=== PATIENT | male | born 1950 | race Caucasian/White ===

== ENCOUNTER → 2019-11-15 | Outpatient (CLI) | payer OTHER ==
--- NOTE | 2019-11-15 11:17 | REP ---
Clinical: Left elbow pain . Technique: AP, lateral, bilateral oblique views of the left elbow. Findings: No acute fracture or dislocation is appreciated. Joint spaces and surrounding soft tissues appear normal. Lateral view demonstrates normal positioning to the anterior and posterior fat pads without evidence for effusion/hemarthrosis. No subcutaneous emphysema or foreign body identified. Impression: Normal age-appropriate left elbow radiographs. Electronically Signed by Malcolm Reynolds MD 11/15/2019 11:09 A
== END ==
LOC: M WUC 10:58
PROVIDERS: ATTEND Physician Assistant
DX: M25.522 Pain in left elbow (principal)

== ENCOUNTER → 2019-11-19 | Outpatient (CLI) | payer OTHER ==
[2019-11-19 11:23] LABS: BASO # 0.1 10^3/uL (0.0-0.2); BASO % 0.7 % (0.0-1.0); EOS # 0.1 10^3/uL (0.0-0.5); EOS % 1.4 % (0.0-3.0); HEMATOCRIT 44.2 % (42.0-52.0); HEMOGLOBIN 14.1 g/dl (13.5-17.5); LYMPH % 13.7 % (24.0-44.0); MEAN CORPUSCULAR HEMOGLOBIN 29.4 pg (27.0-33.0); MEAN CORPUSCULAR HGB CONC 31.9 g/dl (32.0-36.5); MEAN CORPUSCULAR VOLUME 92.3 fl (80.0-96.0); MONO # 0.5 10^3/uL (0.0-0.8); MONO % 6.6 % (0.0-5.0); NEUTROPHILS # 5.4 10^3/uL (1.5-8.5); NEUTROPHILS % 77.5 % (36.0-66.0); PLATELET COUNT, AUTOMATED 370 10^3/uL (150-450); RED BLOOD COUNT 4.79 10^6/uL (4.30-6.10); WHITE BLOOD COUNT 6.9 10^3/uL (4.0-10.0)
[2019-11-19 11:53] LABS: ALBUMIN 2.7 GM/DL (3.2-5.2); ALT/SGPT 34 U/L (12-78); BILIRUBIN,TOTAL 0.5 MG/DL (0.2-1.0); BLOOD UREA NITROGEN 13 MG/DL (7-18); CALCIUM LEVEL 8.7 MG/DL (8.8-10.2); CARBON DIOXIDE LEVEL 29 MEQ/L (21-32); CHLORIDE LEVEL 100 MEQ/L (98-107); CREATININE FOR GFR 0.89 MG/DL (0.70-1.30); GLOMERULAR FILTRATION RATE > 60.0 (>42); GLUCOSE, FASTING 285 MG/DL (70-100); POTASSIUM SERUM 4.4 MEQ/L (3.5-5.1); SODIUM LEVEL 136 MEQ/L (136-145); TOTAL PROTEIN 7.8 GM/DL (6.4-8.2)
--- NOTE | 2019-11-19 11:55 | REP ---
Clinical: Left elbow pain and swelling. Technique: Real time dutta scale and color evaluation using linear high frequency transducer. Findings: Directed ultrasound examination at the region of pain in the antecubital fossa demonstrates a complex fluid collection measuring 4.5 x 2.2 x 3.0 cm with surrounding edema. Findings suggest cellulitis and phlegmon/abscess formation. Impression: Significant subcutaneous edema and central complex collection suggesting cellulitis and phlegmon/abscess. Electronically Signed by Malcolm Reynolds MD 11/19/2019 11:46 A
== END ==
LOC: M RAD 10:36
PROVIDERS: ATTEND Physician Assistant
DX: M25.522 Pain in left elbow (principal)

== ENCOUNTER → 2019-11-22 | Outpatient (CLI) | payer OTHER ==
[2019-11-22 12:32] LABS: BASO % 0.6 % (0.0-1.0); EOS # 0.1 10^3/uL (0.0-0.5); EOS % 1.3 % (0.0-3.0); HEMATOCRIT 42.9 % (42.0-52.0); HEMOGLOBIN 14.1 g/dl (13.5-17.5); LYMPH # 1.3 10^3/uL (1.5-5.0); MEAN CORPUSCULAR HEMOGLOBIN 30.1 pg (27.0-33.0); MEAN CORPUSCULAR HGB CONC 32.9 g/dl (32.0-36.5); MEAN CORPUSCULAR VOLUME 91.7 fl (80.0-96.0); MONO # 0.4 10^3/uL (0.0-0.8); MONO % 6.6 % (0.0-5.0); NEUTROPHILS # 4.4 10^3/uL (1.5-8.5); NEUTROPHILS % 70.2 % (36.0-66.0); PLATELET COUNT, AUTOMATED 371 10^3/uL (150-450); RED BLOOD COUNT 4.68 10^6/uL (4.30-6.10); WHITE BLOOD COUNT 6.3 10^3/uL (4.0-10.0)
[2019-11-22 13:08] LABS: ERYTHROCYTE SEDIMENTATION RATE 68 mm/hr (0-20)
== END ==
LOC: M LAB 11:57
PROVIDERS: ATTEND Orthopaedic Surgery
DX: M00.9 Pyogenic arthritis, unspecified (principal)

== ENCOUNTER → 2020-01-07 | Outpatient (CLI) | payer OTHER ==
--- NOTE | 2020-01-07 14:56 | REP ---
Clinical: Symptoms related to atherosclerotic disease and intermittent claudication. Technique: Real time hart scale and color Doppler evaluation of the bilateral lower extremity arterial vasculature using linear high frequency transducer. Findings: Hart scale and color images demonstrate mild to moderate amounts of atheromatous plaquing with areas of minimal narrowing but no focal stenosis identified. Doppler interrogation demonstrates primarily biphasic arterial wave patterns. Peak systolic velocities (cm/sec) RIGHT LEFT SAMI 0.98 1.08 Common femoral artery 97.2 (triphasic) 72.9 Profunda femoris 98.8 65.9 SFA (proximal) 74.6 (triphasic) 90.4 SFA (mid) 76.4 91.1 SFA (distal) 60.3 93.9 Popliteal artery 42.1 45.1 BEN (prox.) 79.2 72.8 Tibioperoneal trunk 94.6 48.7 SHUTTLE SPOTTER (prox.) 70.1 95.7 SHUTTLE SPOTTER (distal) 48.5 68.7 BEN (distal) 59.5 23.9 Impression: Atheromatous changes with areas of narrowing but no obvious focal occlusion or stenosis. Electronically Signed by Malcolm Reynolds MD 01/07/2020 02:47 P
== END ==
LOC: M RAD 12:10
PROVIDERS: ATTEND Podiatrist Foot & Ankle Surgery
DX: I70.203 Unspecified atherosclerosis of native arteries of extremities, bilateral legs (principal)

== ENCOUNTER 2025-09-05 06:29 | Day surgery (SDC) | payer MEDICARE, OTHER ==
[~2025-09-05] VITALS: Ht 177.8 cm; Wt 78.2 kg
[~2025-09-05 06:29] MED LIST: ALBU2.5V10 INH; ASPI81CH48 PO; ATOR1TAB19 PO; FREE1KIT5 SC; JARD1TAB PO; LISI2.5T9 PO; METF500T13 PO; MULT400T10 PO; VITA400T PO
[2025-09-05] MEDS ORDERED: LR 1,000 ML IV SCH (07:00)
[2025-09-05] MEDS ORDERED: MIDAZOLAM INJ 2 MG/2 ML VIAL As Ordered ONE (07:07)
[2025-09-05] MEDS: TETRACAINE 0.5% OPHTH SOLN 4ML OD SCH (07:33)
[2025-09-05] MEDS: PHENYLEPHRINE 2.5% OPHTH SOL 2ML OD SCH (07:33)
[2025-09-05] MEDS: FLURBIPROFEN 0.03% OPHTH SOLN 2.5 ML OD SCH (07:33)
[2025-09-05] MEDS: CYCLOPENTOLATE 1% OPHTH SOLN 2 ML BTL OD SCH (07:33)
[2025-09-05] MEDS: INSULIN LISPRO (NovoLOG) PER UNIT SC PRN (07:35)
[2025-09-05] MEDS: LIDOCAINE 1% SDV 5 ML VIAL As Ordered ONE (08:17)
[2025-09-05] MEDS: CEFUROXIME 1 MG/0.1 ML INTRACAMERAL INJ As Ordered ONE (08:19)
[2025-09-05 08:35] VITALS: BP 161/74; TEMP 97.3; O2SAT 100
== END 2025-09-05 08:47 | disposition home or self-care (01) ==
LOC: M SDC 06:29
PROVIDERS: ATTEND Ophthalmology
DX: E11.36 Type 2 diabetes mellitus with diabetic cataract (principal); H25.11 Age-related nuclear cataract, right eye; I10 Essential (primary) hypertension; E78.00 Pure hypercholesterolemia, unspecified; J45.909 Unspecified asthma, uncomplicated; Z79.899 Other long term (current) drug therapy; Z79.82 Long term (current) use of aspirin
CPT/HCPCS: 66984; J0697; J1815; J2250; J3010; V2632

== ENCOUNTER 2025-11-07 06:45 | Day surgery (SDC) | payer MEDICARE, OTHER ==
[~2025-11-07] VITALS: Ht 177.8 cm; Wt 79.4 kg
[2025-11-07] MEDS ORDERED: LR 1,000 ML IV SCH (07:00)
[2025-11-07] MEDS: CYCLOPENTOLATE 1% OPHTH SOLN 2 ML BTL OS SCH (07:03)
[2025-11-07] MEDS: TETRACAINE 0.5% OPHTH SOLN 4ML OS SCH (07:03)
[2025-11-07] MEDS: FLURBIPROFEN 0.03% OPHTH SOLN 2.5 ML OS SCH (07:03)
[2025-11-07] MEDS: PHENYLEPHRINE 2.5% OPHTH SOL 2ML OS SCH (07:03)
[2025-11-07] MEDS ORDERED: DEXTROSE 50% 50 ML SYRINGE IV PRN (07:30)
[2025-11-07] MEDS ORDERED: GLUCAGON INJ 1 MG VIAL SC PRN (07:30)
[2025-11-07] MEDS ORDERED: GLUCOSE 4 GM CHEW PO PRN (07:30)
[2025-11-07] MEDS: INSULIN LISPRO (NovoLOG) PER UNIT SC PRN (07:38)
[2025-11-07] MEDS: LIDOCAINE 1% SDV 5 ML VIAL As Ordered ONE (08:29)
[2025-11-07] MEDS: CEFUROXIME 1 MG/0.1 ML INTRACAMERAL INJ As Ordered ONE (08:33)
[2025-11-07 08:48] VITALS: BP 94/56; TEMP 98; O2SAT 99
== END 2025-11-07 09:10 | disposition home or self-care (01) ==
LOC: M SDC 06:45
PROVIDERS: ATTEND Ophthalmology
DX: E11.36 Type 2 diabetes mellitus with diabetic cataract (principal); H25.12 Age-related nuclear cataract, left eye; I10 Essential (primary) hypertension; E78.00 Pure hypercholesterolemia, unspecified; Z79.899 Other long term (current) drug therapy; Z79.82 Long term (current) use of aspirin; Z79.84 Long term (current) use of oral hypoglycemic drugs; Z98.41 Cataract extraction status, right eye
CPT/HCPCS: 66984; J0697; J1815; J3010; V2632